=== PATIENT | male | born 1985 | race Two or more races ===

== ENCOUNTER 2022-02-06 15:52 | Inpatient (IN) | payer MEDICAID, OTHER ==
[~2022-02-06] VITALS: Ht 170.2 cm; Wt 62.9 kg
[2022-02-06] MEDS ORDERED: SODIUM CHLORIDE 0.9% 1,000 ML IV ONE (16:00)
[2022-02-06] MEDS ORDERED: KETOROLAC TROMETH 30 MG/ML 1ML VIAL IV ONE (16:00)
[2022-02-06] MEDS ORDERED: fentaNYL CITRATE 100 MCG/2 ML VL IV ONE (16:00)
[2022-02-06] MEDS ORDERED: ACETAMINOPHEN 325 MG TAB PO ONE (16:00)
[2022-02-06] MEDS ORDERED: ceFAZolin 1GM/50ML 100 ML IV ONE (16:15)
[2022-02-06] MEDS ORDERED: TETANUS-DIPTH-ACEL PERTUSSIS 0.5ML SYR Tdap IM ONE (16:15)
[2022-02-06] MEDS ORDERED: MORPHINE SULFATE INJ 2 MG/ml SYRG IV ONE (20:15)
[2022-02-06] MEDS ORDERED: D5W/SOD CHL 0.45% 1,000 ML IV SCH (21:45)
[2022-02-06] MEDS ORDERED: ONDANSETRON HCL 4 MG/2 ML VIAL IV PRN (21:45)
[2022-02-06] MEDS ORDERED: ACETAMINOPHEN 325 MG TAB PO PRN (21:45)
[2022-02-06] MEDS ORDERED: MORPHINE SULFATE INJ 2 MG/ml SYRG IV PRN (23:15)
[2022-02-06] MEDS ORDERED: NITROGLYCERIN 0.4 MG SL TAB SL PRN (23:15)
[2022-02-06 23:20] LABS: Basophils # (auto) 0 10 ^3/uL (0-0.2); Basophils % (auto) 0.5 % (0.0-2.0); Eosinophils # (auto) 0.1 10 ^3/uL (0-0.8); Eosinophils % (auto) 1.9 % (0.0-7.0); Hematocrit 42.8 % (41.0-53.0); Hemoglobin 14.2 g/dL (13.5-17.5); Lymphocytes # (auto) 1.7 10 ^3/uL (0.4-5.4); Lymphocytes % (auto) 25.2 % (10.0-50.0); Mean Corpuscular Hemoglobin 30.1 pg (28.0-32.0); Mean Corpuscular Hgb Conc. 33.2 g/dL (32.0-36.0); Mean Corpuscular Volume 90.5 fL (80.0-100.0); Monocytes # (auto) 0.4 10 ^3/uL (0-1.3); Monocytes % (auto) 5.3 % (0.0-12.0); Neutrophils # (auto) 4.6 10 ^3/uL (1.6-8.6); Neutrophils % (auto) 67.1 % (37.0-80.0); Nucleated Red Blood Cells % 0.1 %; Red Blood Cells 4.73 10^6/uL (4.5-5.90); Red Cell Distribution Width 13.3 % (11.8-14.3); White Blood Cell 6.9 10^3/uL (4.4-10.8)
[2022-02-06 23:36] LABS: Partial Thromboplastin Time 28.4 sec (24.6-33.4)
[2022-02-06 23:42] LABS: Albumin 3.3 g/dL (3.4-5.0); Calcium 7.9 mg/dL (8.5-10.1); Potassium 3.3 mmol/L (3.5-5.1)
[2022-02-06 23:46] LABS: BUN/Creatinine Ratio 15.1; Bilirubin, Total 0.7 mg/dL (0.2-1.0); Total Protein 5.7 g/dL (6.4-8.2)
[2022-02-07] VITALS (8 sets, daily range): BP systolic 105–147; BP diastolic 64–88
[2022-02-07] MEDS: ceFAZolin 1GM/50ML 100 ML IV SCH ×3 (01:36→15:57)
[2022-02-07] MEDS ORDERED: ceFAZolin 1GM/50ML 50 ML IV SCH (02:30)
[2022-02-07] MEDS ORDERED: CARV3.1240 PO (02:32)
[2022-02-07] MEDS ORDERED: SODIUM CHLORIDE 0.9% 1,000 ML IV SCH (06:30)
[2022-02-07 07:19] LABS: Basophils # (auto) 0 10 ^3/uL (0-0.2); Basophils % (auto) 0.3 % (0.0-2.0); Eosinophils # (auto) 0.1 10 ^3/uL (0-0.8); Hematocrit 44.5 % (41.0-53.0); Hemoglobin 14.8 g/dL (13.5-17.5); Lymphocytes # (auto) 1.5 10 ^3/uL (0.4-5.4); Lymphocytes % (auto) 24.4 % (10.0-50.0); Mean Corpuscular Hemoglobin 30.1 pg (28.0-32.0); Mean Corpuscular Hgb Conc. 33.3 g/dL (32.0-36.0); Mean Corpuscular Volume 90.5 fL (80.0-100.0); Monocytes # (auto) 0.3 10 ^3/uL (0-1.3); Monocytes % (auto) 5.6 % (0.0-12.0); Neutrophils # (auto) 4.1 10 ^3/uL (1.6-8.6); Neutrophils % (auto) 67.7 % (37.0-80.0); Nucleated Red Blood Cells % 0.1 %; Red Blood Cells 4.91 10^6/uL (4.5-5.90); Red Cell Distribution Width 13.4 % (11.8-14.3)
[2022-02-07 07:37] LABS: Albumin 3.7 g/dL (3.4-5.0); Calcium 8.2 mg/dL (8.5-10.1); Potassium 3.2 mmol/L (3.5-5.1)
[2022-02-07 07:40] LABS: BUN/Creatinine Ratio 11.3; Bilirubin, Total 0.9 mg/dL (0.2-1.0); Total Protein 6.2 g/dL (6.4-8.2)
[2022-02-07] MEDS ORDERED: PNEUMOCOCCAL VACC POLYS 25 MCG/0.5 ML VIAL IM ONE (10:00)
[2022-02-07] MEDS: MORPHINE SULFATE INJ 2 MG/ml SYRG IV PRN (11:36)
[2022-02-07] MEDS: ENOXAPARIN SOD 40 MG/0.4 ML SYRINGE SC SCH (11:52)
[2022-02-07] MEDS: HYDROcodone-ACET 5/325MG TAB PO PRN ×2 (13:00→20:33)
[2022-02-07] MEDS ORDERED: POTASSIUM EFFERVESENT TAB 25 MEQ PO ONE (13:45)
[2022-02-08 04:47] VITALS: BP 122/78
[2022-02-08 09:00] VITALS: BP 115/75
[2022-02-08] MEDS ORDERED: AMOXICILLIN/CLAVUL 875 MG TAB PO SCH (10:00)
[2022-02-08] MEDS: ENOXAPARIN SOD 40 MG/0.4 ML SYRINGE SC SCH (10:32)
[2022-02-08] MEDS: MORPHINE SULFATE INJ 2 MG/ml SYRG IV PRN (10:35)
[2022-02-08 13:00] VITALS: BP 124/88
== END 2022-02-08 16:20 | disposition left against medical advice (07) | DRG 342 ==
LOC: EDBD 15:52 → ER 15:52 → OVERFLOW 23:04 → WEST WING 23:46
PROVIDERS: ADMIT Nurse Practitioner Family; ATTEND Internal Medicine Nephrology
DX: S82.831B Other fracture of upper and lower end of right fibula, initial encounter for open fracture type I or II (principal); D69.6 Thrombocytopenia, unspecified; T79.7XXA Traumatic subcutaneous emphysema, initial encounter; S80.811A Abrasion, right lower leg, initial encounter; T14.8XXA Other injury of unspecified body region, initial encounter; Z20.822 Contact with and (suspected) exposure to COVID-19; V89.2XXA Person injured in unspecified motor-vehicle accident, traffic, initial encounter; Y93.89 Activity, other specified; Y92.89 Other specified places as the place of occurrence of the external cause; Y99.8 Other external cause status
CPT/HCPCS: 36415; 73560; 73590; 80053; 83036; 85025; 85610; 85730; 90471; 90715; 96365; 96375; 97163; G0378; J0690; J1885

== ENCOUNTER 2022-02-21 10:52 | Emergency (ER) | payer MEDICAID ==
[~2022-02-21] VITALS: Ht 172.7 cm; Wt 72.7 kg
[~2022-02-21 10:52] MED LIST: CARV3.1240 PO
[2022-02-21] MEDS ORDERED: NEOMYCIN-BACITRACIN-POLYM UNITDOSE PKG TOP OINT TOP ONE (11:45)
[2022-02-21 12:00] VITALS: BP 110/73
[2022-02-21] MEDS ORDERED: HYDROcodone-ACET 5/325MG TAB PO ONE (12:00)
[2022-02-21] MEDS ORDERED: CEPH-509 PO (12:17)
== END 2022-02-21 12:22 | disposition home or self-care (01) ==
LOC: ER 10:52
DX: M79.604 Pain in right leg (principal); F17.210 Nicotine dependence, cigarettes, uncomplicated; Z79.899 Other long term (current) drug therapy

== ENCOUNTER 2022-08-13 01:43 | Emergency (ER) | payer MEDICAID ==
[~2022-08-13] VITALS: Ht 172.7 cm; Wt 75.0 kg
[2022-08-13 01:43] VITALS: BP 128/67
[~2022-08-13 01:43] MED LIST changes: +CEPH-509 PO
[2022-08-13] MEDS ORDERED: ACET-1158 PO (03:51)
[2022-08-13] MEDS ORDERED: CEPH-510 PO (03:51)
[2022-08-13] MEDS ORDERED: TETANUS-DIPTH-ACEL PERTUSSIS 0.5ML SYR Tdap IM ONE (04:00)
== END 2022-08-13 05:07 | disposition home or self-care (01) ==
LOC: ER 01:43
DX: L03.011 Cellulitis of right finger (principal); I10 Essential (primary) hypertension; F17.210 Nicotine dependence, cigarettes, uncomplicated; F12.90 Cannabis use, unspecified, uncomplicated; F15.90 Other stimulant use, unspecified, uncomplicated; Z79.899 Other long term (current) drug therapy
CPT/HCPCS: 73130